=== PATIENT | female | born 1990 | race Caucasian/White ===

== ENCOUNTER → 2018-04-24 | Outpatient (CLI) | payer OTHER ==
[~2018-04-24] MED LIST: ALDOMET500 M1 PO; ALDOMET500 MG PO; AMOXICILLIN500 MG PO; ANAPROX DS550 MG PO; BP MEDICATION; HYDR25T PO; KEFLEX500 MG PO; KENALOG 0.1%80 GM T; MOTRIN800 MG PO; NIX CREME RINSE60 M1 PO; NKHM; NORCO 325 MG-51 TAB PO; PREDNISONE50 MG PO; PRENATAL 19 TA1 EACH PO; PRENATAL1 TA1 PO; PRENATAL1 TA3 PO; PRINIVIL5 MG PO; PROTONIX40 MG PO; VISTARIL50 MG PO; WOMEN'S DAILY F1 TAB PO; ZANTAC 150150 MG PO; ZOFRAN ODT4 MG SL
== END | disposition home or self-care (01) ==
LOC: US 10:00
DX: M79.604 Pain in right leg (principal); M79.605 Pain in left leg; M79.89 Other specified soft tissue disorders

== ENCOUNTER → 2018-08-16 | Outpatient (CLI) | payer OTHER ==
[2018-08-16 11:14] LABS: BASO # 0.1 10*3/uL (0.0-0.1); BASO % 0.6 % (0.0-1.0); EOS # 0.2 10*3/uL (0.0-0.4); EOS % 1.8 % (1.0-4.0); HEMATOCRIT 45.9 % (37.0-47.0); HEMOGLOBIN 14.9 g/dl (12.0-16.0); LYMPH # 3.3 10*3/uL (1.3-4.4); MEAN CELL VOLUME 89.1 fl (81.0-99.0); MEAN CORPUSCULAR HGB 28.9 pg (27.0-31.0); MEAN CORPUSCULAR HGB CONC 32.5 g/dl (33.0-37.0); MEAN PLATELET VOLUME 8.9 fl (9.6-12.3); MONO # 0.6 10*3/uL (0.1-1.0); MONO % 4.6 % (3.0-9.0); NEUT # 8.3 10*3/uL (2.3-7.9); NEUT % 66.6 % (47.0-73.0); PLATELET COUNT AUTOMATED 361 10*3/uL (130-400); RED BLOOD COUNT 5.15 10*6/uL (4.10-5.10); RED CELL DISTRI WIDTH 12.5 % (0-14.5); WHITE BLOOD COUNT 12.5 10*3/uL (4.8-10.8)
[2018-08-16 11:30] LABS: BUN 10 mg/dl (7-24); CHLORIDE 105 mmol/L (98-107); CREATININE 0.75 mg/dL (0.55-1.02); POTASSIUM 4.4 mmol/L (3.5-5.1); SODIUM 139 mmol/L (136-145)
[2018-08-16 11:39] LABS: ACT PARTIAL THROMBO TIME 25.7 SECONDS (20.8-31.5)
== END | disposition home or self-care (01) ==
LOC: LAB 10:35
PROVIDERS: Internal Medicine Cardiovascular Disease
DX: I42.0 Dilated cardiomyopathy (principal); R06.02 Shortness of breath

== ENCOUNTER → 2018-08-23 | Outpatient (CLI) | payer OTHER ==
[2018-08-23 11:49] LABS: BUN 13 mg/dl (7-24); CHLORIDE 105 mmol/L (98-107); POTASSIUM 3.7 mmol/L (3.5-5.1); SODIUM 140 mmol/L (136-145)
== END | disposition home or self-care (01) ==
LOC: LAB 10:51
PROVIDERS: Internal Medicine Cardiovascular Disease
DX: I10 Essential (primary) hypertension (principal); I42.0 Dilated cardiomyopathy

== ENCOUNTER → 2018-11-06 | Outpatient (CLI) | payer OTHER ==
[2018-11-18 14:08] LABS: RESULTS 5G/5G (.)
== END | disposition home or self-care (01) ==
LOC: LAB 11:21
PROVIDERS: Internal Medicine
DX: O24.414 Gestational diabetes mellitus in pregnancy, insulin controlled (principal); Z3A.09 9 weeks gestation of pregnancy

== ENCOUNTER 2019-05-14 10:20 | Inpatient (IN) | payer OTHER ==
[~2019-05-14] VITALS: Ht 157.4 cm; Wt 140.7 kg
--- NOTE | ~2019-05-14 | EKG ---
[place], [place] ELECTROCARDIOGRAM REPORT NAME: JACOBY MEYERS UNIT #: [id number] ROOM: 408 DOCTOR: SHAKIRA DRAFT REPORT BIRTHDATE: [birth year] [facility] Test Date: 2019-05-14 Test Time: 12:13:20 Pat Name: JACOBY MEYERS Department: Room: 408 Gender: F [employer]: DANIEL : 1990 Requested By: LAQUITA PHILLIPS Order Number: [id number] Reading MD: Jordin Hackett MD Measurements Intervals Cool Rate: 98 P: 61 DC: 179 QRS: 55 QRSD: 83 T: 16 QT: 382 QTc: 488 Interpretive Statements Sinus rhythm Borderline prolonged QT interval Electronically Signed On 05-15-2019 9:33:37 PDT by Jordin Hackett MD CM:EKGRPT:ELECTROCARDIOGRAM REPORT [id number] [id number] LAQUITA ROSENBERG DRAFT REPORT LAQUITA MCALLISTER
--- NOTE | ~2019-05-14 | PR ---
[place], [place] PROGRESS NOTE NAME: JACOBY MEYERS UNIT #: [id number] ROOM: 408 DOCTOR: AMANDA MURILLO MD BIRTHDATE: [birth year] DOS: 05/17/2019 PULMONARY PROGRESS NOTE SUBJECTIVE: The patient is independently seen and examined in rncb-od-fjwe encounter, history was confirmed. Physical examination was performed. Labs were reviewed. Assessment and management of the today's visit was personally completed. Note done by the outside medical sales representative was approved. She continued to do very well with the diuresis. The patient has been noted significant weight loss secondary to loss of edema with the diuretic. Shortness of breath has been decreasing. No symptoms of chest pain, fever, or chills. Denies symptoms of hemoptysis. PHYSICAL EXAMINATION: VITAL SIGNS: This morning, normal temperature, respiratory rate is 18, heart rate is 97, blood pressure 150-100. Pulse oxygen saturation on room air was 95% saturation. HEENT: Examination shows head was atraumatic. Eyes nonicterus. NECK: Supple. CARDIOVASCULAR SYSTEM: S1, S2 is audible. LUNGS: Noted without any wheezing or crackles today. Breaths are noted [id number]-[id number] diminished bilaterally. ABDOMEN: Soft, nontender. Bowel sounds present. EXTREMITIES: Noted with resolving edema. IMPRESSION: Stable respiratory status noted with cardiomyopathy noted on echocardiogram that was completed yesterday with a picture of anasarca and congestive heart failure. Basilar area of atelectasis was also noted. There was no evidence of acute pneumonia. PLAN OF MANAGEMENT: Continuation of bronchodilators, oxygen supplementation, other therapy, and plan of management as well. Other additional treatment changes will be made based on the progression of the illness. Usual care. Discharge planning per primary care physician. [place], [place] PROGRESS NOTE NAME: JACOBY MEYERS UNIT #: [id number] ROOM: 408 DOCTOR: AMANDA MURILLO MD BIRTHDATE: [birth year] AMANDA VALENCIA MD CM:PNTRANS [id number] AMANDA KHALIL MD 05/27/19 1052 interface
--- NOTE | ~2019-05-14 | CON ---
[place], [place] REPORT OF CONSULTATION NAME: JACOBY MEYERS UNIT #: [id number] ROOM: 408 DOCTOR: TANYA LAW MD BIRTHDATE: [birth year] DOS: 05/15/2019 ADDENDUM This is an addendum to the consult note done by the nurse practitioner, Jenny Hackett, on the patient, Johnny Batista. I agree with the assessment and plan made by the nurse practitioner, Jenny Hackett. I reviewed the labs and imaging and made the necessary changes in the note. Tanya Law MD CM:CONSTR:REPORT OF CONSULTATION 2114 06/09/19 0216 interface
--- NOTE | ~2019-05-14 | CON ---
[place], [place] REPORT OF CONSULTATION NAME: JACOBY MEYERS UNIT #: [id number] ROOM: 408 DOCTOR: ALEXANDRO GATICA,FEBRUARY BIRTHDATE: [birth year] DOS: 05/15/2019 HISTORY OF PRESENT ILLNESS: The patient is a 28-year-old female who was admitted from home yesterday with complaints of cough, congestion, shortness of breath and increasing peripheral edema. Father recently from CHF and she was concerned that she may have CHF. Overnight, she was found to have increasing erythema of her abdominal wall. She was diagnosed with abdominal wall cellulitis and started on vancomycin and Zosyn. She has had blood and urine cultures done, which are pending. She has had no fevers or shaking chills prior to admission or since her shortness of breath was mainly dyspnea on exertion upon reviewing her symptoms with her. She had a CTA of the chest, which does not show any PE or infiltrates. Also had a CT of the abdomen and pelvis, which showed anasarca. She does give a history of over a few months ago having a rash over her abdomen for which she was sent to a engineering drafter in [place], who felt that she may have had a reaction to a bug bite. She may or may not have been given antibiotics at that time. She is not certain. She also had a few spots in the back of her calves. She denies any abdominal pain other than some burning on the underside of her pannus where she states it feels like it is raw. PAST MEDICAL HISTORY: Morbid obesity, diabetes, essential hypertension, seasonal allergies, prior and hernia surgery. SOCIAL HISTORY: She is a smoker. No alcohol or illicit drug use. Lives with her boyfriend and daughter. FAMILY MEDICAL HISTORY: Father at the age of 60 from CHF and coronary artery disease and diabetes. Mother alive and well at the age of 55 with only hypertension. ALLERGIES: No known drug allergies. LABORATORY DATA: WBCs originally 12 on admission down to 10.7, platelets 363, sed rate of 30, BUN 11, creatinine 0.8, AST 51, ALT 41. Hepatitis panel is pending. Albumin 2.9. CURRENT MEDICATIONS: K-Dur, Nicoderm patch, Claritin, Normodyne, Mucinex, folic acid, Lovenox, aspirin, DuoNeb, Bumex, Cepacol, vancomycin, Humalog, Restoril, Zofran, milk of mag, Dulcolax, [place], vancomycin is currently ordered at 1.75 grams every 8 hours, Zosyn. VITAL SIGNS: Temperature 98.1, pulse 103, respirations 18, BP 164/99. REVIEW OF SYSTEMS: As above in history of present illness, also gives a history of sore throat on and off for approximately the last week. No sick contacts to her knowledge. Again, complained of peripheral edema and weight gain. Further review of systems is unremarkable. Does state that her blood sugars she feels like are fairly well controlled, last hemoglobin A1c was around 7. PHYSICAL EXAMINATION: [place], [place] REPORT OF CONSULTATION NAME: JACOBY MEYERS UNIT #: [id number] ROOM: [facility] DOCTOR: ALEXANDRO GATICAFEBRUARY BIRTHDATE: [birth year] GENERAL: A 28-year-old morbidly obese female, in no acute distress, nontoxic in appearance. HEAD, EYES, EARS, NOSE AND THROAT: Normocephalic. Pupils equal, round and reactive to light. Oropharynx clear. No thrush. NECK: Supple, no cervical lymphadenopathy. LUNGS: Clear to auscultation bilaterally. Respirations even and unlabored. HEART: Regular rhythm. No murmur appreciated. ABDOMEN: Huge, nontender, has erythema over anterior and lower abdomen. She does have a few areas of folliculitis. Skin underneath her pannus is intact. She has erythema, but not really tender. EXTREMITIES: +2 to 3 edema bilateral lower extremities, +2 bilateral dorsalis pedis pulses. She does have a few spots of folliculitis as well on her legs, especially the left. SKIN: Otherwise warm, dry, free of rashes. ASSESSMENT: Abdominal wall cellulitis and folliculitis, super morbid obesity. PLAN: We will check a MRSA screen. Continue the vancomycin, stop Zosyn. Check a BMP in the morning. Vancomycin trough with this afternoon dose that will be her third dose. Will need to watch her creatinine closely with such a high vancomycin dosing. FEBRUARY GAVI MC Roselia Schrader MD CM:CONSTR:REPORT OF CONSULTATION 1211 05/15/19 1259 interface
--- NOTE | ~2019-05-14 | PR ---
[place], [place] PROGRESS NOTE NAME: JACOBY MEYERS [facility] #: [id number] UNIT #: [id number] ROOM: 408 DOCTOR: ERIK KHALIL MD,AMANDA BIRTHDATE: [birth year] DOS: 05/18/2019 SUBJECTIVE: The patient was seen and examined. The patient continued to show improvement with resolution of the current symptom of edema, which continue to resolve progressively. Denies symptoms of fever, chills, coughing or hemoptysis. OBJECTIVE: VITAL SIGNS: For the patient this morning, sitting on the bed been noted as normal temperature. The respiratory rate recorded as 18, heart rate 93. Blood pressure 148/98. Pulse oxygen saturation recorded as 96% saturation on room air. HEENT: Examination shows head was atraumatic. Eyes nonicterus. NECK: Supple. CARDIOVASCULAR: S1, S2 audible. LUNGS: Noted without any wheezing or crackles. ABDOMEN: Soft, nontender. Bowel sounds are present. EXTREMITIES: Without any acute new changes. Edema of the extremities has improved significantly. IMPRESSION: 1. Resolving acute congestive heart failure with systolic dysfunction. 2. Severe morbid obesity. 3. History of chronic nicotine abuse. PLAN OF TREATMENT: The patient would be continued on current plan of therapy at this time. From the pulmonary standpoint, discharge planning per primary care physician on the diuretic medical management of congestive heart failure. Supportive care. Outpatient assessment could be done for pulmonary evaluation for the bronchial asthma with a history of chronic nicotine abuse. AMANDA VALENCIA MD CM:PNTRANS [id number] AMANDA KHALIL MD 05/18/19 1430 interface
--- NOTE | ~2019-05-14 | CON ---
[place], [place] REPORT OF CONSULTATION NAME: JACOBY MEYERS [facility] #: [id number] UNIT #: [id number] ROOM: 408 DOCTOR: AMANDA MURILLO MD BIRTHDATE: [birth year] DOS: 05/15/2019 PULMONARY CONSULTATION, EVALUATION, AND MANAGEMENT REASON FOR CONSULTATION: To assess the abnormal CT finding of air trapping. HISTORY OF PRESENT ILLNESS: This is a 28-year-old white female patient, who has been noted acutely ill since 02/2019. The patient has been treated by the primary care physician as an outpatient with antibiotics, bronchodilators, and some other medication, partial improvement in symptoms. She has reported progressive edema of the lower extremity associated with increased shortness of breath for the last several days. The patient was also noticed redness in the lower portion of the abdomen. The patient states that she was concerned about cellulitis, presented to the Emergency Room for further assessment. The patient assessed in the Emergency Room and hospitalized. She denies any symptoms of wheezing. Denies symptoms of chest pain. Shortness of breath occurred with moderate exertion with cough, which has been reported essentially dry. PAST MEDICAL HISTORY: Now with: 1. Longstanding history of type 2 diabetes mellitus. 2. Essential hypertension. 3. Seasonal allergies. 4. Morbid obesity. 5. Nicotine dependence. PAST SURGICAL HISTORY: 1. . 2. Hernia repair. HOME MEDICATIONS: Home medications listed as aspirin, folic acid, Microzide, NovoLog insulin, labetalol, loratadine and metformin. CURRENT MEDICATIONS: Current medications, which were actually administered on this hospitalization were reviewed and noted as Mucinex, potassium chloride, loratadine, folic acid, aspirin, labetalol, Lovenox for DVT prophylaxis, DuoNeb q.6 hours, Bumex 1 mg q.8 hours, IV vancomycin, IV Zosyn, and other p.r.n. medications. DRUG ALLERGIES: No known drug allergies. SOCIAL HISTORY: The patient stated she is single, has one child, lives at home. Denies history of alcohol use or illicit drug use. Tobacco use was ranging between half to a pack of cigarettes per day intermittently started smoking in early teens. FAMILY HISTORY: Father at 60 years from complication of congestive heart failure. Mother is living, 55 years old, with history of essential hypertension reported. REVIEW OF SYSTEMS: [place], [place] REPORT OF CONSULTATION NAME: JACOBY MEYERS UNIT #: [id number] ROOM: 408 DOCTOR: ERIK KHALIL MD,AMANDA BIRTHDATE: [birth year] CONSTITUTIONAL SYMPTOMS: Fatigue and tiredness reported. Denies any symptoms of fever or chills. EYES: Denies any burning, redness, or tenderness. EARS, NOSE, AND THROAT SYMPTOMS: No sore throat, hoarseness, otalgia, postnasal drainage, or epistaxis. CARDIOVASCULAR SYSTEM: Denies angina pain. Palpitation noted. Progressive edema of the lower extremity, but there was no pain. GASTROINTESTINAL SYMPTOMS: Noted with increased weight recently with fluid retention. Denies symptoms of nausea, vomiting, diarrhea, abdominal pain, hematemesis, melena, or hematochezia. GENITOURINARY SYMPTOMS: No dysuria, suprapubic pain, or hematuria. MUSCULOSKELETAL SYMPTOMS: No acute joint pain, redness, or tenderness. CENTRAL NERVOUS SYSTEM: No dizziness, headache, diplopia, or syncopal episodes. Remaining systems were reviewed and they were noted all negative. PHYSICAL EXAMINATION: GENERAL: This is a 28-year-old female patient noted without any acute distress. Height of 5 feet 2 inches, weight of 335 pounds, severe morbid obesity with BMI of 61.3. VITAL SIGNS: Vital signs of the patient, which have been recorded showed the temperature noted as normal, respiratory rate of 18-24, heart rate of 114-96, and blood pressure of 150/92-146/89. Intake of 3,170 and the output was 6650 mL, negative fluid balance of 3.480 liters. The pulse oxygen saturation recorded on room air as 94% saturation at rest. HEENT: Examination shows chronic severe morbid obesity. Head was atraumatic. Eyes nonicterus. Severe decreased posterior pharyngeal space, high tongue base, crowding of soft tissue structures. LUNGS: Noted essentially decreased breath sounds without any wheezing or crackles heard. ABDOMEN: Noted soft and morbidly obese. VISIBLE SKIN: No lesions or rashes. CENTRAL NERVOUS SYSTEM: The patient was noted without any focal neurologic deficit. Cranial nerves intact. MUSCULOSKELETAL: Without acute deformities. LABORATORY DATA: CMP done yesterday, normal BUN and creatinine, the glucose is 125. The PT and PTT were noted as normal. Lactic acid was noted as 1.2. CBC of this morning essentially was noted as normal study. CMP this morning, normal BUN and creatinine, glucose is 134. LFTs were noted essentially normal except albumin of 2.9 and AST minimally elevated at 51. IMAGING DATA: The review of the chest x-ray of 1 view, which was done in the Emergency Room noted as quite limited study because of large body habitus, does not show any evidence of acute pulmonary infiltrates. The patient had a CTA of the chest done as well as the abdomen. A CT scan with contrast also obtained in the Emergency Room. CT of the chest was personally reviewed, shows there was no pleural fluid, evidence of increased interstitial marking noted with ground-glass opacity, some area of atelectasis in the left lung, and hepatic steatosis was also reported by Radiology. CT scan of the abdomen, question of mild pancreatic inflammatory changes around the head of the pancreas was also [place], [place] REPORT OF CONSULTATION NAME: JACOBY MEYERS UNIT #: [id number] ROOM: [facility] DOCTOR: AMANDA MURILLO MD BIRTHDATE: [birth year] stated. FINAL IMPRESSION: 1. The patient has been admitted to the hospital was noted with findings suggestive of anasarca, congestive heart failure with possible systolic and diastolic dysfunction to be assessed, question of pancreatitis not consistent, acute pancreatitis. 2. Hepatic steatosis secondary to morbid obesity and type 2 diabetes mellitus. 3. Chronic nicotine dependence. 4. Current finding of the CT scan of the chest suggest interstitial edema and air trapping secondary to possibility of respiratory bronchiolitis with chronic nicotine dependence. 5. Advanced severe morbid obesity. 6. Consideration for obstructive sleep apnea disorder as well. PLAN OF CARE: The patient is getting broad-spectrum intravenous antibiotics, sooner the culture results become available, all the antibiotic need to be discontinued. There was no convincing evidence of significant cellulitis of the abdomen noted and certainly the findings does not suggest any evidence of acute pancreatitis. Tobacco cessation counseling was discussed with the patient in detail. She was ordered nicotine replacement patches stating that she may not needed, but the order was placed in the chart if the patient wished to use for nicotine withdrawal could be done. She was also getting nebulized bronchodilators that will help to reduce clearance from the major airways. Other additional treatment changes will be ordered based on the progression of her illness on current hospitalization. Supportive care, other plan of management, and care plan of treatments. Thanks for allowing me to participate in the care of this patient. AMANDA VALENCIA MD CM:CONSTR:REPORT OF CONSULTATION 1112 05/27/19 1050 interface
[2019-05-14 10:21] VITALS: BP 180/100
[2019-05-14] MEDS ORDERED: NOVOLOG 70/30 M10 ML SQ (10:28)
[2019-05-14] MEDS ORDERED: GLUCOPHAGE1000 MG PO (10:28)
[2019-05-14] MEDS ORDERED: NATURE'S BLEND F1 MG PO (10:29)
[2019-05-14] MEDS ORDERED: LABETALOL HCL100 MG PO (10:29)
[2019-05-14] MEDS ORDERED: ASPIRIN ADULT L81 M1 PO (10:29)
[2019-05-14] MEDS ORDERED: MICROZIDE12.5 M1 PO (10:29)
[2019-05-14] MEDS ORDERED: CLARITIN10 MG PO (10:30)
--- NOTE | 2019-05-14 10:53 | NUR ---
PT WITH REDNESS NOTED TO LOWER ABDOMINAL WALL AND "FELT HOT WHEN I WOKE UP" PER PT.
[2019-05-14 11:10] LABS: BILIRUBIN NEGATIVE (NEGATIVE); BLOOD 3+ (NEGATIVE); CLARITY SL CLOUDY (CLEAR); COLOR YELLOW (YELLOW); GLUCOSE NEGATIVE (NEGATIVE); KETONE NEGATIVE (NEGATIVE); LEUKO ESTERASE TRACE (NEGATIVE); NITRITE NEGATIVE (NEGATIVE); UROBILINOGEN 0.2 E.U./dl (0.2-1.0)
[2019-05-14 11:21] LABS: BACTERIA TRACE; RBC 41-50 rbc/hpf (0-2)
[2019-05-14 11:25] VITALS: BP 188/106
[2019-05-14 11:53] LABS: BASO # 0.1 10*3/uL (0.0-0.1); BASO % 0.5 % (0.0-1.0); EOS # 0.4 10*3/uL (0.0-0.4); HEMATOCRIT 35.9 % (37.0-47.0); HEMOGLOBIN 10.7 g/dl (12.0-16.0); LYMPH % 16.7 % (27.0-41.0); MEAN CELL VOLUME 85.1 fl (81.0-99.0); MEAN CORPUSCULAR HGB 25.4 pg (27.0-31.0); MEAN CORPUSCULAR HGB CONC 29.8 g/dl (33.0-37.0); MEAN PLATELET VOLUME 9.7 fl (9.6-12.3); MONO # 0.9 10*3/uL (0.1-1.0); MONO % 7.5 % (3.0-9.0); NEUT # 8.6 10*3/uL (2.3-7.9); NEUT % 71.6 % (47.0-73.0); PLATELET COUNT AUTOMATED 335 10*3/uL (130-400); RED BLOOD COUNT 4.22 10*6/uL (4.10-5.10); RED CELL DISTRI WIDTH 15.6 % (0-14.5)
[2019-05-14 12:04] LABS: ACT PARTIAL THROMBO TIME 25.6 SECONDS (20.0-32.1)
[2019-05-14 12:10] LABS: ALBUMIN 2.8 gm/dl (3.1-4.5); ALKALINE PHOSPHATASE 83 U/L (45-117); BUN 12 mg/dl (7-24); CHLORIDE 107 mmol/L (98-107); CREATININE 0.74 mg/dL (0.55-1.02); LIPASE 94 U/L (73-393); POTASSIUM 3.9 mmol/L (3.5-5.1); SGOT/AST 41 IU/L (3-35); SGPT/ALT 40 U/L (12-78); SODIUM 140 mmol/L (136-145); TOTAL PROTEIN 6.8 gm/dL (6.4-8.2)
[2019-05-14 12:11] LABS: TROPONIN I < 0.015 ng/ml (<0.045)
[2019-05-14 12:35] VITALS: BP 128/74
--- NOTE | 2019-05-14 13:03 | NUR ---
PT POSITIONED FOR COMFORT WITH FAMILY @ BEDSIDE,SAFETY PRECAUTIONS INTACT AND CALL LIGHT WITHIN REACH,PT STATING "I AM REALLY TIRED",LIGHTS TURNED DOWN AND WILL CONTINUE TO MONITOR.
[2019-05-14 15:03] VITALS: BP 152/82
--- NOTE | 2019-05-14 15:45 | NUR ---
A 28, admitted to 4E, under the services of ALVARO Allen DO with a diagnosis of HYPERTENSIVE EMERGENCY,CELLULITIS ABD WALL. Chief complaint is COUGH,SWELLING LEGS. Patient arrived via stretcher from ER. Monitor applied. Initial assessment completed. Vital signs taken and recorded. ALVARO ALLEN DO notified of admission to the unit. Orders received. See assessment for past medical history, medications and allergies. Patient and/or family oriented to unit. visitation policy reviewed. Clothing/patient valuable form completed. OLVIN PADRON
[2019-05-14 15:57] VITALS: BP 146/89
[2019-05-14 20:00] VITALS: BP 154/96
[2019-05-15] VITALS: BP 153/101
--- NOTE | 2019-05-15 00:14 | NUR ---
TYLENOL GIVEN PER ORDER FOR MILD ABD PAIN WHEN COUGHING.
--- NOTE | 2019-05-15 01:15 | NUR ---
TYLENOL HELPING PER PT.
[2019-05-15 02:30] VITALS: BP 148/96
--- NOTE | 2019-05-15 02:38 | NUR ---
CALLED DR. BRITO AND HE IS TO CALL BACK.
--- NOTE | 2019-05-15 03:00 | NUR ---
24 HR chart check completed.
--- NOTE | 2019-05-15 03:50 | NUR ---
NOTIFIED DR. BRITO OF ELEVATED BP. NO NEW ORDERS AT THIS TIME.
[2019-05-15 06:16] LABS: BASO # 0.1 10*3/uL (0.0-0.1); BASO % 0.6 % (0.0-1.0); EOS # 0.4 10*3/uL (0.0-0.4); EOS % 3.6 % (1.0-4.0); HEMOGLOBIN 11.2 g/dl (12.0-16.0); LYMPH # 2.2 10*3/uL (1.3-4.4); MEAN CELL VOLUME 85.4 fl (81.0-99.0); MEAN CORPUSCULAR HGB 25.2 pg (27.0-31.0); MEAN CORPUSCULAR HGB CONC 29.5 g/dl (33.0-37.0); MEAN PLATELET VOLUME 9.6 fl (9.6-12.3); MONO # 0.9 10*3/uL (0.1-1.0); MONO % 8.2 % (3.0-9.0); PLATELET COUNT AUTOMATED 363 10*3/uL (130-400); RED BLOOD COUNT 4.45 10*6/uL (4.10-5.10); RED CELL DISTRI WIDTH 15.6 % (0-14.5); WHITE BLOOD COUNT 10.7 10*3/uL (4.8-10.8)
[2019-05-15 06:41] LABS: ALBUMIN 2.9 gm/dl (3.1-4.5); BUN 11 mg/dl (7-24); CHLORIDE 106 mmol/L (98-107); CHOLESTEROL 147 mg/dL (<200); SGOT/AST 51 IU/L (3-35); SGPT/ALT 41 U/L (12-78); SODIUM 140 mmol/L (136-145); TOTAL PROTEIN 6.8 gm/dL (6.4-8.2); TRIGLYCERIDES 154 mg/dl (<150); VLDL CHOLESTEROL 31 mg/dL (6-40)
[2019-05-15 06:48] LABS: ALKALINE PHOSPHATASE 82 U/L (45-117); HDL CHOLESTEROL 16 mg/dl (40-60); LDL CHOLESTEROL 100 mg/dL (9-159)
[2019-05-15 08:00] VITALS: BP 158/92
[2019-05-15 08:52] LABS: VITAMIN D, 25-HYDROXY 25.9 ng/mL (30-100)
--- NOTE | 2019-05-15 09:16 | NUR ---
DR. GORE,DR. MC ANSWERING SERVICE NOTIFIED. DR. VALENCIA CELL NO ANSWER.
[2019-05-15 12:00] VITALS: BP 164/99
[2019-05-15 16:00] VITALS: BP 151/91
[2019-05-15 20:00] VITALS: BP 158/110
[2019-05-16] VITALS: BP 152/86
[2019-05-16 06:13] LABS: BASO # 0.1 10*3/uL (0.0-0.1); BASO % 0.5 % (0.0-1.0); EOS # 0.4 10*3/uL (0.0-0.4); EOS % 3.6 % (1.0-4.0); HEMATOCRIT 37.2 % (37.0-47.0); HEMOGLOBIN 10.8 g/dl (12.0-16.0); LYMPH # 2.5 10*3/uL (1.3-4.4); LYMPH % 20.9 % (27.0-41.0); MEAN CELL VOLUME 85.7 fl (81.0-99.0); MEAN CORPUSCULAR HGB 24.9 pg (27.0-31.0); MEAN PLATELET VOLUME 9.7 fl (9.6-12.3); MONO # 0.9 10*3/uL (0.1-1.0); MONO % 7.8 % (3.0-9.0); NEUT # 7.9 10*3/uL (2.3-7.9); NEUT % 66.7 % (47.0-73.0); PLATELET COUNT AUTOMATED 348 10*3/uL (130-400); RED BLOOD COUNT 4.34 10*6/uL (4.10-5.10); RED CELL DISTRI WIDTH 15.7 % (0-14.5); WHITE BLOOD COUNT 11.9 10*3/uL (4.8-10.8)
[2019-05-16 06:34] LABS: BUN 13 mg/dl (7-24); CHLORIDE 106 mmol/L (98-107); CREATININE 0.76 mg/dL (0.55-1.02); PHOSPHOROUS 4.8 mg/dL (2.5-4.9); SODIUM 143 mmol/L (136-145)
--- NOTE | 2019-05-16 07:21 | NUR ---
24 HR chart check completed.
[2019-05-16 08:00] VITALS: BP 142/95
--- NOTE | 2019-05-16 09:00 | NUR ---
Billet Sawyer in to talk to patient. Patient states lives at home with family. There are few steps in the home. Physician: amanda samayoa [facility] Home health services: none Patient's level of ADLs: INDEPENDENT Patient has working utilities: all working DME: none Follow-up physician's appointment after d/c: will be made by hospitalist nurse director upon discharge Does patient want to access PORTAL?: no Discharge plan discussed with patient, patient lives at home with family, she is independent in adls and ambualtion, patient will be going home when able and denies any home needs. MARLEEN RODRIGUEZ
[2019-05-16 12:00] VITALS: BP 151/111
[2019-05-16 16:00] VITALS: BP 149/86
[2019-05-16 20:00] VITALS: BP 165/110
--- NOTE | 2019-05-16 20:00 | NUR ---
DR. PEOPLES'S ANSWERING SERVICE NOTIFIED OF CONSULT.
--- NOTE | 2019-05-16 20:25 | NUR ---
VIRIDIANA HUBER NOTIFIED OF ELEV MANUAL B/P OF 164/112, ORDERS RECEIVED.
[2019-05-17] VITALS: BP 140/88
[2019-05-17 05:06] LABS: HEPATITIS B SURFACE AG Negative (Negative); HEPATITIS C VIRUS ANTIBODY <0.1 s/co (0.0-0.9)
[2019-05-17 06:19] LABS: BASO # 0.1 10*3/uL (0.0-0.1); BASO % 0.6 % (0.0-1.0); EOS # 0.6 10*3/uL (0.0-0.4); EOS % 4.6 % (1.0-4.0); HEMATOCRIT 41.6 % (37.0-47.0); HEMOGLOBIN 12.1 g/dl (12.0-16.0); LYMPH # 3.2 10*3/uL (1.3-4.4); MEAN CELL VOLUME 84.9 fl (81.0-99.0); MEAN CORPUSCULAR HGB 24.7 pg (27.0-31.0); MEAN CORPUSCULAR HGB CONC 29.1 g/dl (33.0-37.0); MEAN PLATELET VOLUME 9.4 fl (9.6-12.3); MONO # 0.9 10*3/uL (0.1-1.0); MONO % 6.6 % (3.0-9.0); NEUT # 8.5 10*3/uL (2.3-7.9); NEUT % 63.6 % (47.0-73.0); PLATELET COUNT AUTOMATED 431 10*3/uL (130-400); RED CELL DISTRI WIDTH 15.8 % (0-14.5); WHITE BLOOD COUNT 13.4 10*3/uL (4.8-10.8)
[2019-05-17 06:55] LABS: BUN 14 mg/dl (7-24); CHLORIDE 104 mmol/L (98-107); CREATININE 0.85 mg/dL (0.55-1.02); POTASSIUM 3.9 mmol/L (3.5-5.1); SODIUM 141 mmol/L (136-145)
[2019-05-17 06:56] LABS: IRON 34 ug/dL (50-170); TOTAL IRON BINDING CAPACITY 542 ug/dl (250-450)
--- NOTE | 2019-05-17 07:30 | NUR ---
24 HR chart check completed.
[2019-05-17 08:00] VITALS: BP 158/100
--- NOTE | 2019-05-17 09:00 | NUR ---
case management visits with patient, patient states she will be going home when able and denies any home needs
[2019-05-17 12:00] VITALS: BP 130/84
--- NOTE | 2019-05-17 13:57 | NUR ---
PT REFUSED TEST R/T HAVING ONE IN ER EVEN THOUGH I CAN NOT SEE WHERE THIS WAS DONE.
--- NOTE | 2019-05-17 14:02 | NUR ---
CORRECTION ON THE IN ER. IT WAS DONE ON 05/14 AT 1125.
[2019-05-17 16:00] VITALS: BP 145/92
[2019-05-17 20:00] VITALS: BP 154/92
--- NOTE | 2019-05-17 23:00 | NUR ---
IV started right antecubital with #22 angiocath after 1 attempt. The IV site was prepped with Chloraprep. Heparin lock attached. Sterile dressing applied. Patient tolerated precedure well. Procedure performed according to [facility] policy & procedure. Hep Lock discontinued. Site asymptomatic. Pressure applied. Sterile dressing applied. VAZQUEZ COY
[2019-05-18] VITALS: BP 130/70
--- NOTE | 2019-05-18 04:07 | NUR ---
PT RESTING IN BED AT THIS TIME WITH NO SIGNS/SYMPTOMS OF PAIN OR DISCOMFORT. RESPIRATIONS ARE EASY AND NONLABORED. SHE IS CURRENTLY NSR ON THE MONITOR WITH A HEART RATE IN THE 80'S. BED IS LOCKED AND IN THE LOWEST POSITION, CALL LIGHT IS WITHIN REACH. WILL CONTINUE TO MONITOR PT.
[2019-05-18 07:13] LABS: BUN 13 mg/dl (7-24); CHLORIDE 105 mmol/L (98-107); CREATININE 0.92 mg/dL (0.55-1.02); POTASSIUM 3.9 mmol/L (3.5-5.1); SODIUM 141 mmol/L (136-145)
[2019-05-18 08:00] VITALS: BP 148/98
--- NOTE | 2019-05-18 09:00 | NUR ---
case management visits with patient, patient states she is going home today, denies any home needs
[2019-05-18] MEDS ORDERED: KEFLEX 500 MG E2 CAP PO (10:28)
[2019-05-18] MEDS ORDERED: FEROSUL325 MG PO (10:29)
[2019-05-18] MEDS ORDERED: COREG25 MG PO (10:29)
[2019-05-18] MEDS ORDERED: KLOR-CON M1010 ME1 PO (10:29)
[2019-05-18] MEDS ORDERED: BUMETANIDE1 MG PO (10:29)
[2019-05-18] MEDS ORDERED: VITAMIN D32000 UNI1 PO (10:29)
[2019-05-18] MEDS ORDERED: ALDACTONE25 MG PO (10:29)
[2019-05-18] MEDS ORDERED: LISINOPRIL20 MG PO (10:29)
--- NOTE | 2019-05-18 10:48 | NUR ---
Discharge instructions reviewed with patient/family. Patient receptive and verbalizes understanding. Follow-up care arranged. Written instructions given to patient/family. KELBY CYR
== END 2019-05-18 10:48 | disposition home or self-care (01) | DRG 871 ==
LOC: ED 10:20 → 4E 14:48 → EDHOLD 14:48 → 4E 15:14
PROVIDERS: Internal Medicine; Internal Medicine Cardiovascular Disease; Physician Assistant; Student in an Organized Health Care Education/Training Program; ADMIT Emergency Medicine
DX: A41.9 Sepsis, unspecified organism (principal); K85.90 Acute pancreatitis without necrosis or infection, unspecified; I50.21 Acute systolic (congestive) heart failure; E43 Unspecified severe protein-calorie malnutrition; L03.311 Cellulitis of abdominal wall; R18.8 Other ascites; J98.11 Atelectasis; I42.9 Cardiomyopathy, unspecified; Z68.44 Body mass index [BMI] 60.0-69.9, adult; I11.0 Hypertensive heart disease with heart failure; E66.01 Morbid (severe) obesity due to excess calories; D50.9 Iron deficiency anemia, unspecified; K76.0 Fatty (change of) liver, not elsewhere classified; I16.0 Hypertensive urgency; L73.9 Follicular disorder, unspecified; R00.0 Tachycardia, unspecified; E11.65 Type 2 diabetes mellitus with hyperglycemia; R31.21 Asymptomatic microscopic hematuria; J30.2 Other seasonal allergic rhinitis; F17.210 Nicotine dependence, cigarettes, uncomplicated; Z71.6 Tobacco abuse counseling; Z79.4 Long term (current) use of insulin; Z98.891 History of uterine scar from previous surgery; Z82.49 Family history of ischemic heart disease and other diseases of the circulatory system; Z83.3 Family history of diabetes mellitus; Z79.899 Other long term (current) drug therapy

== ENCOUNTER → 2020-12-04 | Outpatient (CLI) | payer OTHER ==
[~2020-12-04] MED LIST changes: +ALDACTONE25 MG PO; +ASPIRIN ADULT L81 M1 PO; +BUMETANIDE1 MG PO; +CLARITIN10 MG PO; +COREG25 MG PO; +FEROSUL325 MG PO; +GLUCOPHAGE1000 MG PO; +KEFLEX 500 MG E2 CAP PO; +KLOR-CON M1010 ME1 PO; +LABETALOL HCL100 MG PO; +LISINOPRIL20 MG PO; +MICROZIDE12.5 M1 PO; +NATURE'S BLEND F1 MG PO; +NOVOLOG 70/30 M10 ML SQ; +VITAMIN D32000 UNI1 PO
== END | disposition home or self-care (01) ==
LOC: COVID19 15:58
PROVIDERS: ATTEND Family Medicine
DX: Z20.822 Contact with and (suspected) exposure to COVID-19 (principal)

== ENCOUNTER → 2021-11-25 | Outpatient (CLI) | payer OTHER ==
[2021-11-25 17:04] LABS: BASO # 0.1 10*3/uL (0.0-0.1); BASO % 0.6 % (0.0-1.0); EOS # 0.3 10*3/uL (0.0-0.4); EOS % 2.1 % (1.0-4.0); HEMATOCRIT 41.7 % (37.0-47.0); LYMPH # 2.9 10*3/uL (1.3-4.4); LYMPH % 23.1 % (27.0-41.0); MEAN CELL VOLUME 89.3 fl (81.0-99.0); MEAN CORPUSCULAR HGB 28.7 pg (27.0-31.0); MEAN CORPUSCULAR HGB CONC 32.1 g/dl (33.0-37.0); MEAN PLATELET VOLUME 9.4 fl (9.6-12.3); MONO # 0.8 10*3/uL (0.1-1.0); MONO % 6.1 % (3.0-9.0); NEUT # 8.6 10*3/uL (2.3-7.9); NEUT % 67.6 % (47.0-73.0); PLATELET COUNT AUTOMATED 327 10*3/uL (130-400); RED BLOOD COUNT 4.67 10*6/uL (4.10-5.10); RED CELL DISTRI WIDTH 13.2 % (0-14.5); RETICULOCYTE % 2.55 % (0.50-2.50); WHITE BLOOD COUNT 12.7 10*3/uL (4.8-10.8)
[2021-11-25 17:09] LABS: BILIRUBIN Negative (Negative); BLOOD Negative (Negative); CLARITY Clear (Clear); COLOR Yellow (Yellow); GLUCOSE Negative (Negative); KETONE Negative (Negative); LEUKO ESTERASE Negative (Negative); NITRITE Negative (Negative)
[2021-11-25 17:21] LABS: BACTERIA 1+; EPITHELIAL CELLS TNTC; HYALINE CAST 0-2; RBC 0-2 rbc/hpf (0-2); WBC 0-2 wbc/hpf (0-5)
[2021-11-25 17:24] LABS: ALKALINE PHOSPHATASE 101 U/L (45-117); BUN 12 mg/dl (7-24); CHLORIDE 106 mmol/L (98-107); CHOLESTEROL 156 mg/dL (<200); CREATININE 0.83 mg/dL (0.55-1.02); IRON 86 ug/dL (50-170); LDL CHOLESTEROL 88 mg/dL (9-159); POTASSIUM 3.8 mmol/L (3.5-5.1); SGOT/AST 33 IU/L (3-35); SGPT/ALT 49 U/L (12-78); SODIUM 140 mmol/L (136-145); T3 UPTAKE 37 % (31-39); TOTAL IRON BINDING CAPACITY 480 ug/dl (250-450); TOTAL PROTEIN 7.3 gm/dL (6.4-8.2); TRIGLYCERIDES 246 mg/dl (<150)
[2021-11-25 17:31] LABS: GAMMA GLUTAMYL TRANSPEPTIDASE 52 U/L (5-55); THYROXINE (T4) TOTAL 5.9 ug/dl (4.8-13.9)
[2021-11-25 17:38] LABS: VITAMIN D, 25-HYDROXY 12.7 ng/mL (30-100)
[2021-11-25 17:39] LABS: FERRITIN 41.3 ng/mL (10.0-291.0)
== END | disposition home or self-care (01) ==
LOC: LAB 16:46
PROVIDERS: ATTEND Family Medicine
DX: E11.9 Type 2 diabetes mellitus without complications (principal); E55.9 Vitamin D deficiency, unspecified; R53.83 Other fatigue

== ENCOUNTER → 2022-04-24 | Outpatient (CLI) | payer OTHER ==
[~2022-04-24] MED LIST changes: +ADMELOG100 UNIT/1 SQ; +APRESOLINE10 MG PO; +ASPIRIN CHEWABL81 MG PO; +ATORVASTATIN CA40 M1 PO; +CARVEDILOL25 MG PO; +CARVEDILOL3.125 MG PO; +LEVOFLOXACIN750 M2 PO; +LISINOPRIL5 MG PO; +VIBRAMYCIN100 MG PO; +VITAMIN D3125 MC1 PO
[2022-04-24 11:49] LABS: BASO # 0.1 10*3/uL (0.0-0.1); BASO % 0.6 % (0.0-1.0); EOS # 0.3 10*3/uL (0.0-0.4); EOS % 2.2 % (1.0-4.0); HEMATOCRIT 45.9 % (37.0-47.0); LYMPH # 2.4 10*3/uL (1.3-4.4); LYMPH % 18.2 % (27.0-41.0); MEAN CELL VOLUME 84.7 fl (81.0-99.0); MEAN CORPUSCULAR HGB 27.1 pg (27.0-31.0); MONO # 0.9 10*3/uL (0.1-1.0); MONO % 6.7 % (3.0-9.0); NEUT # 9.6 10*3/uL (2.3-7.9); NEUT % 71.9 % (47.0-73.0); PLATELET COUNT AUTOMATED 385 10*3/uL (130-400); RED BLOOD COUNT 5.42 10*6/uL (4.10-5.10); RED CELL DISTRI WIDTH 17.5 % (0-14.5); WHITE BLOOD COUNT 13.4 10*3/uL (4.8-10.8)
[2022-04-24 12:10] LABS: ALKALINE PHOSPHATASE 113 U/L (45-117); BUN 13 mg/dl (7-24); CHLORIDE 106 mmol/L (98-107); CHOLESTEROL 118 mg/dL (<200); CREATININE 0.85 mg/dL (0.55-1.02); GAMMA GLUTAMYL TRANSPEPTIDASE 32 U/L (5-55); IRON 75 ug/dL (50-170); LDL CHOLESTEROL 57 mg/dL (9-159); POTASSIUM 4.1 mmol/L (3.5-5.1); SGOT/AST 14 IU/L (3-35); SGPT/ALT 29 U/L (12-78); SODIUM 138 mmol/L (136-145); T3 UPTAKE 33 % (31-39); THYROXINE (T4) TOTAL 7.9 ug/dl (4.8-13.9); TOTAL IRON BINDING CAPACITY 431 ug/dl (250-450); TOTAL PROTEIN 7.3 gm/dL (6.4-8.2); TRIGLYCERIDES 182 mg/dl (<150)
[2022-04-24 12:21] LABS: FERRITIN 23.8 ng/mL (10.0-291.0); VITAMIN D, 25-HYDROXY 34.4 ng/mL (30-100)
[2022-04-24 14:05] LABS: BILIRUBIN Negative (Negative); BLOOD Negative (Negative); CLARITY Clear (Clear); COLOR Yellow (Yellow); GLUCOSE 3+ (Negative); KETONE Negative (Negative); LEUKO ESTERASE Negative (Negative); NITRITE Negative (Negative); SPECIFIC GRAVITY >= 1.030 (1.001-1.030); UROBILINOGEN 0.2 E.U./dl (0.0-1.0)
[2022-04-24 14:26] LABS: BACTERIA TRACE; EPITHELIAL CELLS 16-20
== END | disposition home or self-care (01) ==
LOC: LAB 11:15
PROVIDERS: ATTEND Family Medicine
DX: E78.5 Hyperlipidemia, unspecified (principal); E55.9 Vitamin D deficiency, unspecified; E11.9 Type 2 diabetes mellitus without complications; R79.89 Other specified abnormal findings of blood chemistry; R53.83 Other fatigue; R74.8 Abnormal levels of other serum enzymes

== ENCOUNTER → 2022-09-12 | Outpatient (CLI) | payer OTHER ==
[2022-09-12 13:32] LABS: BASO # 0.1 10*3/uL (0.0-0.1); BASO % 0.5 % (0.0-1.0); BILIRUBIN Negative (Negative); BLOOD Negative (Negative); CLARITY Cloudy (Clear); COLOR Yellow (Yellow); EOS # 0.4 10*3/uL (0.0-0.4); EOS % 3.3 % (1.0-4.0); GLUCOSE 2+ (Negative); HEMATOCRIT 45.3 % (37.0-47.0); KETONE Negative (Negative); LEUKO ESTERASE Negative (Negative); LYMPH # 2.9 10*3/uL (1.3-4.4); LYMPH % 22.7 % (27.0-41.0); MEAN CELL VOLUME 91.7 fl (81.0-99.0); MEAN CORPUSCULAR HGB 29.8 pg (27.0-31.0); MEAN CORPUSCULAR HGB CONC 32.5 g/dl (33.0-37.0); MEAN PLATELET VOLUME 9.1 fl (9.6-12.3); MONO # 0.8 10*3/uL (0.1-1.0); MONO % 6.6 % (3.0-9.0); NEUT # 8.5 10*3/uL (2.3-7.9); NEUT % 66.6 % (47.0-73.0); NITRITE Negative (Negative); PLATELET COUNT AUTOMATED 326 10*3/uL (130-400); RED BLOOD COUNT 4.94 10*6/uL (4.10-5.10); RED CELL DISTRI WIDTH 13.7 % (0-14.5); RETICULOCYTE % 2.03 % (0.50-2.50); SPECIFIC GRAVITY >= 1.030 (1.001-1.030); UROBILINOGEN 0.2 E.U./dl (0.0-1.0); WHITE BLOOD COUNT 12.8 10*3/uL (4.8-10.8)
[2022-09-12 13:41] LABS: BACTERIA TRACE; CALCIUM OXALATE CRYSTALS 2+; MUCOUS 1+; RBC 0-2 rbc/hpf (0-2); WBC 0-2 wbc/hpf (0-5)
[2022-09-12 13:53] LABS: BUN 11 mg/dl (7-24); CHLORIDE 106 mmol/L (98-107); CHOLESTEROL 103 mg/dL (<200); GAMMA GLUTAMYL TRANSPEPTIDASE 28 U/L (5-55); IRON 79 ug/dL (50-170); POTASSIUM 3.4 mmol/L (3.5-5.1); SGOT/AST 17 IU/L (3-35); SGPT/ALT 27 U/L (12-78); SODIUM 141 mmol/L (136-145); THYROXINE (T4) TOTAL 7.2 ug/dl (4.8-13.9); TOTAL PROTEIN 7.2 gm/dL (6.4-8.2); TRIGLYCERIDES 133 mg/dl (<150)
[2022-09-12 14:02] LABS: ALKALINE PHOSPHATASE 98 U/L (45-117); LDL CHOLESTEROL 51 mg/dL (9-159); T3 UPTAKE 37 % (31-39)
[2022-09-12 14:48] LABS: VITAMIN D, 25-HYDROXY 41.5 ng/mL (30-100)
[2022-09-12 14:49] LABS: FERRITIN 19.8 ng/mL (10.0-291.0)
== END | disposition home or self-care (01) ==
LOC: LAB 12:21
PROVIDERS: Family Medicine; ATTEND Internal Medicine Cardiovascular Disease
DX: I50.20 Unspecified systolic (congestive) heart failure (principal); E10.9 Type 1 diabetes mellitus without complications; R79.89 Other specified abnormal findings of blood chemistry; R53.83 Other fatigue; R74.8 Abnormal levels of other serum enzymes; E55.9 Vitamin D deficiency, unspecified; E78.5 Hyperlipidemia, unspecified

== ENCOUNTER → 2022-10-21 | Outpatient (CLI) | payer OTHER ==
[2022-10-21 12:57] LABS: CHLORIDE 99 mmol/L (98-107); POTASSIUM 3.2 mmol/L (3.4-5.1); SODIUM 138 mmol/L (136-145)
[2022-10-21 13:06] LABS: BUN 10 mg/dl (9-23)
== END | disposition home or self-care (01) ==
LOC: LAB 11:26
PROVIDERS: ATTEND Internal Medicine Cardiovascular Disease
DX: I10 Essential (primary) hypertension (principal)

== ENCOUNTER → 2022-11-05 | Outpatient (CLI) | payer OTHER ==
[2022-11-05 14:07] LABS: BUN 9 mg/dl (9-23); CHLORIDE 103 mmol/L (98-107); CREATININE 0.79 mg/dL (0.55-1.02); POTASSIUM 3.9 mmol/L (3.4-5.1); SODIUM 138 mmol/L (136-145)
== END | disposition home or self-care (01) ==
LOC: LAB 12:39
PROVIDERS: ATTEND Internal Medicine Cardiovascular Disease
DX: E87.6 Hypokalemia (principal); I50.20 Unspecified systolic (congestive) heart failure

== ENCOUNTER → 2023-05-04 | Outpatient (CLI) | payer OTHER ==
[2023-05-04 11:46] LABS: BASO # 0.1 10*3/uL (0.0-0.1); BASO % 0.7 % (0.0-1.0); EOS # 0.3 10*3/uL (0.0-0.4); EOS % 2.4 % (1.0-4.0); HEMATOCRIT 47.1 % (37.0-47.0); LYMPH # 2.8 10*3/uL (1.3-4.4); LYMPH % 21.8 % (27.0-41.0); MEAN CELL VOLUME 90.8 fl (81.0-99.0); MEAN CORPUSCULAR HGB 30.1 pg (27.0-31.0); MEAN CORPUSCULAR HGB CONC 33.1 g/dl (33.0-37.0); MEAN PLATELET VOLUME 9.2 fl (9.6-12.3); MONO # 0.8 10*3/uL (0.1-1.0); NEUT # 8.9 10*3/uL (2.3-7.9); NEUT % 68.8 % (47.0-73.0); PLATELET COUNT AUTOMATED 302 10*3/uL (130-400); RED BLOOD COUNT 5.19 10*6/uL (4.10-5.10); RETICULOCYTE % 1.61 % (0.50-2.50)
[2023-05-04 11:54] LABS: BILIRUBIN Negative (Negative); BLOOD Negative (Negative); CLARITY Clear (Clear); COLOR Yellow (Yellow); GLUCOSE 3+ (Negative); KETONE Negative (Negative); LEUKO ESTERASE Negative (Negative); NITRITE Negative (Negative); PH 5.5 (4.5-8.0); UROBILINOGEN 0.2 E.U./dl (0.0-1.0)
[2023-05-04 12:33] LABS: ALKALINE PHOSPHATASE 111 U/L (46-116); BUN 9 mg/dl (9-23); CHLORIDE 103 mmol/L (98-107); CHOLESTEROL 118 mg/dL (<200); GAMMA GLUTAMYL TRANSPEPTIDASE 36 U/L (0-73); LDL CHOLESTEROL 64 mg/dL (9-159); POTASSIUM 3.9 mmol/L (3.4-5.1); SGPT/ALT 22 U/L (10-49); T3 UPTAKE 25.6 % (22.4-36.7); THYROID STIM HORMONE (HS) 2.621 uIU/ml (0.550-4.780); THYROXINE (T4) TOTAL 5.6 ug/dl (4.5-10.9); TOTAL PROTEIN 7.1 gm/dL (6.0-8.0); TRIGLYCERIDES 138 mg/dl (<150)
[2023-05-04 12:35] LABS: VITAMIN D, 25-HYDROXY 59.9 ng/mL (30-100)
[2023-05-04 13:35] LABS: BACTERIA TRACE
== END | disposition home or self-care (01) ==
LOC: LAB 11:16
PROVIDERS: ATTEND Family Medicine
DX: E78.5 Hyperlipidemia, unspecified (principal); R79.89 Other specified abnormal findings of blood chemistry; R53.83 Other fatigue; R74.8 Abnormal levels of other serum enzymes; E55.9 Vitamin D deficiency, unspecified

== ENCOUNTER → 2024-01-28 | Outpatient (CLI) | payer OTHER ==
[2024-01-28 09:44] LABS: BASO # 0.1 10*3/uL (0.0-0.1); BASO % 0.5 % (0.0-1.0); EOS # 0.4 10*3/uL (0.0-0.4); EOS % 3.7 % (1.0-4.0); HEMATOCRIT 46.9 % (37.0-47.0); LYMPH # 2.6 10*3/uL (1.3-4.4); LYMPH % 23.3 % (27.0-41.0); MEAN CELL VOLUME 92.1 fl (81.0-99.0); MEAN CORPUSCULAR HGB 29.9 pg (27.0-31.0); MEAN CORPUSCULAR HGB CONC 32.4 g/dl (33.0-37.0); MEAN PLATELET VOLUME 9.2 fl (9.6-12.3); MONO # 0.7 10*3/uL (0.1-1.0); MONO % 6.4 % (3.0-9.0); NEUT # 7.3 10*3/uL (2.3-7.9); NEUT % 65.8 % (47.0-73.0); PLATELET COUNT AUTOMATED 311 10*3/uL (130-400); RED BLOOD COUNT 5.09 10*6/uL (4.10-5.10); RED CELL DISTRI WIDTH 13.2 % (0-14.5); RETICULOCYTE % 2.09 % (0.50-2.50); WHITE BLOOD COUNT 11.1 10*3/uL (4.8-10.8)
[2024-01-28 09:48] LABS: BILIRUBIN Negative (Negative); BLOOD Negative (Negative); CLARITY Cloudy (Clear); COLOR Yellow (Yellow); GLUCOSE 3+ (Negative); KETONE Negative (Negative); LEUKO ESTERASE Negative (Negative); NITRITE Negative (Negative); PH 5.5 (4.5-8.0); SPECIFIC GRAVITY 1.015 (1.001-1.030); UROBILINOGEN 0.2 E.U./dl (0.0-1.0)
[2024-01-28 09:57] LABS: BACTERIA 1+; EPITHELIAL CELLS TNTC; WBC 0-2 wbc/hpf (0-5)
[2024-01-28 10:27] LABS: ALKALINE PHOSPHATASE 104 U/L (46-116); BUN 7 mg/dl (9-23); CHLORIDE 106 mmol/L (98-107); CHOLESTEROL 108 mg/dL (<200); GAMMA GLUTAMYL TRANSPEPTIDASE 32 U/L (0-73); LDL CHOLESTEROL 56 mg/dL (9-159); POTASSIUM 3.7 mmol/L (3.4-5.1); SGPT/ALT 18 U/L (5-49); T3 UPTAKE 32.2 % (22.4-36.7); THYROXINE (T4) TOTAL 6.9 ug/dl (4.5-10.9); TOTAL PROTEIN 7.4 gm/dL (6.0-8.0); TRIGLYCERIDES 127 mg/dl (<150)
[2024-01-28 10:38] LABS: VITAMIN D, 25-HYDROXY 52.5 ng/mL (30-100)
== END | disposition home or self-care (01) ==
LOC: LAB 09:09
PROVIDERS: Family Medicine; ATTEND Family Medicine
DX: E11.65 Type 2 diabetes mellitus with hyperglycemia (principal); E11.29 Type 2 diabetes mellitus with other diabetic kidney complication; R80.9 Proteinuria, unspecified; R79.89 Other specified abnormal findings of blood chemistry; R53.83 Other fatigue; E78.5 Hyperlipidemia, unspecified; E55.9 Vitamin D deficiency, unspecified; Z79.4 Long term (current) use of insulin

== ENCOUNTER → 2024-08-22 | Outpatient (CLI) | payer OTHER ==
[2024-08-22 11:24] LABS: BASO # 0.1 10*3/uL (0.0-0.1); BASO % 0.5 % (0.0-1.0); BILIRUBIN Negative (Negative); BLOOD Negative (Negative); CLARITY Clear (Clear); COLOR Yellow (Yellow); EOS # 0.3 10*3/uL (0.0-0.4); EOS % 2.6 % (1.0-4.0); GLUCOSE 3+ (Negative); HEMATOCRIT 47.7 % (37.0-47.0); KETONE Negative (Negative); LEUKO ESTERASE Negative (Negative); LYMPH # 2.5 10*3/uL (1.3-4.4); LYMPH % 23.1 % (27.0-41.0); MEAN CELL VOLUME 91.7 fl (81.0-99.0); MEAN CORPUSCULAR HGB 30.4 pg (27.0-31.0); MEAN CORPUSCULAR HGB CONC 33.1 g/dl (33.0-37.0); MEAN PLATELET VOLUME 9.1 fl (9.6-12.3); MONO # 0.7 10*3/uL (0.1-1.0); MONO % 6.1 % (3.0-9.0); NEUT # 7.4 10*3/uL (2.3-7.9); NEUT % 67.3 % (47.0-73.0); NITRITE Negative (Negative); PLATELET COUNT AUTOMATED 327 10*3/uL (130-400); RED CELL DISTRI WIDTH 13.2 % (0-14.5); RETICULOCYTE % 2.07 % (0.50-2.50); SPECIFIC GRAVITY >= 1.030 (1.001-1.030); UROBILINOGEN 0.2 E.U./dl (0.0-1.0)
[2024-08-22 11:59] LABS: VITAMIN D, 25-HYDROXY 66.7 ng/mL (30-100)
[2024-08-22 12:00] LABS: ALKALINE PHOSPHATASE 105 U/L (46-116); BUN 11 mg/dl (9-23); CHLORIDE 103 mmol/L (98-107); CHOLESTEROL 131 mg/dL (<200); GAMMA GLUTAMYL TRANSPEPTIDASE 31 U/L (0-73); LDL CHOLESTEROL 58 mg/dL (9-159); POTASSIUM 3.7 mmol/L (3.4-5.1); SGPT/ALT 20 U/L (5-49); T3 UPTAKE 31.9 % (22.4-36.7); THYROXINE (T4) TOTAL 6.3 ug/dl (4.5-10.9); TOTAL PROTEIN 7.2 gm/dL (6.0-8.0); TRIGLYCERIDES 237 mg/dl (<150)
[2024-08-22 13:32] LABS: BACTERIA TRACE; YEAST TRACE
== END | disposition home or self-care (01) ==
LOC: LAB 10:36
PROVIDERS: ATTEND Family Medicine
DX: E78.5 Hyperlipidemia, unspecified (principal); R79.89 Other specified abnormal findings of blood chemistry; R53.83 Other fatigue; E55.9 Vitamin D deficiency, unspecified

== ENCOUNTER → 2025-02-02 | Outpatient (CLI) | payer OTHER ==
[2025-02-02 10:40] LABS: BASO % 0.4 % (0.0-1.0); EOS # 0.3 10*3/uL (0.0-0.4); EOS % 2.9 % (1.0-4.0); HEMATOCRIT 42.7 % (37.0-47.0); MEAN CELL VOLUME 91.2 fl (81.0-99.0); MEAN CORPUSCULAR HGB 29.5 pg (27.0-31.0); MEAN CORPUSCULAR HGB CONC 32.3 g/dl (33.0-37.0); MONO # 0.7 10*3/uL (0.1-1.0); MONO % 6.4 % (3.0-9.0); NEUT # 7.3 10*3/uL (2.3-7.9); PLATELET COUNT AUTOMATED 283 10*3/uL (130-400); RED BLOOD COUNT 4.68 10*6/uL (4.10-5.10); WHITE BLOOD COUNT 10.8 10*3/uL (4.8-10.8)
[2025-02-02 11:18] LABS: ALKALINE PHOSPHATASE 92 U/L (46-116); BUN 14 mg/dl (9-23); CHLORIDE 103 mmol/L (98-107); CHOLESTEROL 134 mg/dL (<200); GAMMA GLUTAMYL TRANSPEPTIDASE 25 U/L (0-73); LDL CHOLESTEROL 67 mg/dL (9-159); POTASSIUM 3.6 mmol/L (3.4-5.1); SGPT/ALT 16 U/L (5-49); T3 UPTAKE 28.2 % (22.4-36.7); THYROXINE (T4) TOTAL 7.1 ug/dl (4.5-10.9); TOTAL PROTEIN 7.3 gm/dL (6.0-8.0); TRIGLYCERIDES 189 mg/dl (<150)
[2025-02-02 11:50] LABS: VITAMIN D, 25-HYDROXY 60.8 ng/mL (30-100)
== END | disposition home or self-care (01) ==
LOC: LAB 10:07
PROVIDERS: ATTEND Family Medicine
DX: R79.89 Other specified abnormal findings of blood chemistry (principal); R53.83 Other fatigue; E78.5 Hyperlipidemia, unspecified; E11.9 Type 2 diabetes mellitus without complications; E55.9 Vitamin D deficiency, unspecified

== ENCOUNTER → 2025-08-29 | Outpatient (CLI) | payer OTHER ==
[2025-08-29 10:08] LABS: BASO # 0.1 10*3/uL (0.0-0.1); BASO % 0.6 % (0.0-1.0); EOS # 0.3 10*3/uL (0.0-0.4); EOS % 2.6 % (1.0-4.0); MEAN CELL VOLUME 91.2 fl (81.0-99.0); MEAN CORPUSCULAR HGB 29.4 pg (27.0-31.0); MEAN PLATELET VOLUME 9.0 fl (9.6-12.3); MONO # 0.9 10*3/uL (0.1-1.0); MONO % 7.4 % (3.0-9.0); NEUT # 8.6 10*3/uL (2.3-7.9); NEUT % 68.4 % (47.0-73.0); NUCLEATED RED BLOOD CELL 0.0 % (0.0-0.0); NUCLEATED RED BLOOD CELL 0.0 10*3/uL (0.0-0.0); PLATELET COUNT AUTOMATED 335 10*3/uL (130-400); RED CELL DISTRI WIDTH 13.7 % (0-14.5); RETICULOCYTE % 2.04 % (0.50-2.50)
[2025-08-29 10:11] LABS: BILIRUBIN Negative (Negative); BLOOD Negative (Negative); CLARITY Clear (Clear); COLOR Yellow (Yellow); KETONE Negative (Negative); LEUKO ESTERASE Trace (Negative); NITRITE Negative (Negative); PH 6.0 (4.5-8.0); SPECIFIC GRAVITY 1.020 (1.001-1.030); UROBILINOGEN 0.2 E.U./dl (0.0-1.0)
[2025-08-29 10:31] LABS: BACTERIA 2+; RBC 0-2 rbc/hpf (0-2)
[2025-08-29 10:32] LABS: YEAST TRACE
[2025-08-29 10:53] LABS: BUN 14 mg/dl (9-23); GAMMA GLUTAMYL TRANSFERASE 33 U/L (0-38); LDL CHOLESTEROL 77 mg/dL (9-159); SGPT/ALT 27 U/L (5-49); T3 UPTAKE 33.9 % (22.4-36.7); THYROXINE (T4) TOTAL 5.8 ug/dl (4.5-10.9)
[2025-08-29 10:54] LABS: VITAMIN D, 25-HYDROXY 71.1 ng/mL (30-100)
== END | disposition home or self-care (01) ==
LOC: LAB 09:38
PROVIDERS: ATTEND Family Medicine
DX: R79.89 Other specified abnormal findings of blood chemistry (principal); E78.5 Hyperlipidemia, unspecified; E10.9 Type 1 diabetes mellitus without complications; R53.83 Other fatigue; E55.9 Vitamin D deficiency, unspecified